=== PATIENT | male | born 1985 | race Two or more races ===

== ENCOUNTER 2016-09-30 16:56 | Emergency (ER) | payer OTHER | END 2016-09-30 19:36 | disposition home or self-care (01) | LOC: CFTX 16:56 → CED 16:56 → CFTX 16:57 → CED 17:00 | DX: S13.4XXA Sprain of ligaments of cervical spine, initial encounter (principal); F17.200 Nicotine dependence, unspecified, uncomplicated; Z88.8 Allergy status to other drugs, medicaments and biological substances; Z79.899 Other long term (current) drug therapy; V49.40XA Driver injured in collision with unspecified motor vehicles in traffic accident, initial encounter; Y92.410 Unspecified street and highway as the place of occurrence of the external cause | CPT/HCPCS: 72040; 99283 ==